=== PATIENT | male | born 1940 | race Caucasian/White ===

== ENCOUNTER 2018-02-06 17:51 | Emergency (ER) | payer MEDICARE ==
[~2018-02-06] VITALS: Ht 180.3 cm; Wt 106.6 kg
[~2018-02-06 17:51] MED LIST: CARDURA2 MG PO; CRESTOR10 MG PO; LIDEX 0.05% OIN15 GM TOPICAL; PLAVIX75 MG PO; TIAZAC/CARDIZE180 MG PO
[2018-02-06 17:59] VITALS: Ht 180.3 cm; Wt 106.6 kg
[2018-02-06] MEDS ORDERED: CYCLOBENZAPRINE10 MG PO (19:56)
[2018-02-06] MEDS ORDERED: ULTRAM50 MG PO (19:58)
[2018-02-06] MEDS ORDERED: PREDNISONE10 MG PO (19:59)
[2018-02-06 20:06] VITALS: BP 144/76
== END 2018-02-06 20:06 | disposition home or self-care (01) ==
LOC: D.ER 17:51
DX: M54.41 Lumbago with sciatica, right side (principal); M51.26 Other intervertebral disc displacement, lumbar region

== ENCOUNTER → 2018-02-26 14:56 | Outpatient (CLI) | payer MEDICARE, BC ==
[2018-02-06 17:59] VITALS: BMI 31.7
[~2018-02-26 14:56] MED LIST changes: +CYCLOBENZAPRINE10 MG PO; +PREDNISONE10 MG PO; +ULTRAM50 MG PO
== END | disposition home or self-care (01) ==
LOC: D.MRI 14:56
DX: M54.16 Radiculopathy, lumbar region (principal)

== ENCOUNTER → 2018-05-27 10:29 | Outpatient (CLI) | payer MEDICARE, BC ==
[2018-02-06 17:59] VITALS: BMI 31.7
== END | disposition home or self-care (01) ==
LOC: D.MRI 10:29
PROVIDERS: ATTEND Orthopaedic Surgery
DX: M54.16 Radiculopathy, lumbar region (principal)